=== PATIENT | female | born 1975 | race Hispanic/Latino ===

== ENCOUNTER 2019-10-15 11:38 | Emergency (ER) | payer BC ==
[~2019-10-15] VITALS: Ht 152.4 cm; Wt 73.1 kg
[~2019-10-15 11:38] MED LIST: BIOTIN 800 MCG1 EACH PO; MULTIVITAMINS1 EAC8 PO; VIT B12 PO
--- NOTE | 2019-10-15 12:07 | Emergency Department Note ---
History of Present Illnes History of Present Illness Chief Complaint: Headache History of Present Illness This is a 44 year old female, with no significant past medical history, who presents for evaluation of injuries as a result of a slip and fall that occurred 4 days ago. She states that she was [place], and was walking up a concrete incline to get back into the water, when she slipped and fell, landing on the left side of her face and left chest. She denied loss of consciousness. She's had no nausea, vomiting, dizziness, or focal neurologic's. She does complain of a headache that is keeping her awake at night, and was on relieved a Tylenol 3. She has a bruise on the left side of her cheek and left anterior chest area. She is having some mild left chest pain with inspiration, just beneath the ecchymoses. Patient denies any physical abuse occurred. She denies seek medical care at the time of injury. Historian: Patient Arrival Mode: [employer] Required: No Onset (how long ago): day(s) (4) Location: left side of face and left chest Quality: aching, pain Radiation: Reports non-radiation Severity: moderate Onset quality: sudden Duration (how long): day(s) (4) Timing of current episode: constant Progression: unchanged Chronicity: new Context: Reports trauma/injury (see HPI) Relieving factors: none Exacerbating factors: none Associated symptoms: Reports chest pain (soreness of the area beneath the left chest contusion), Reports headaches; Denies confusion, Denies cough, Denies nausea/vomiting, Denies shortness of breath, Denies weakness Past Medical/Family History Physician Review I have reviewed the patient's past medical and family history. Any updates have been documented here. Past Medical History Recent Fever: No Clinical Suspicion of Infectio: No New/Unexplained Change in Ment: No Past Medical History: None Past Surgical History: None Social History Smoking Cessation: Never Smoker Alcohol Use: None Any Illegal Drug Use: No TB Exposure/Symptoms: No Physically hurt or threatened: No Family History Family history of heart diseas: No Other Any Pre-Existing Lines (PICC,: No Is patient up to date on immun: No Review of Systems Review of Systems Constitutional: Denies fever, Denies malaise, Denies weakness EENTM: Denies eye pain, Denies blurred vision, Denies double vision, Denies nose congestion Cardiovascular: Denies chest pain, Denies palpitations Respiratory: Reports pain on inspiration; Denies cough, Denies hemoptysis, Denies pain with cough, Denies dyspnea, Denies dyspnea on exertion Gastrointestinal: Reports nausea; Denies abdominal pain, Denies diarrhea, Denies vomiting Genitourinary: Reports no symptoms Musculoskeletal: Reports muscle pain (left chest wall pain, beneath ecchymosis;) Integumentary: Reports no symptoms, Reports ecchymosis (beneath the left zygomatic arch) Neurological: Reports headache; Denies numbness, Denies paresthesia, Denies tingling Psychological: Reports anxiety Endocrine: Reports no symptoms Hematological/Lymphatic: Reports no symptoms Review of other systems: All other systems negative Physical Exam Related Data Allergies: Coded Allergies: No Known Allergies (Unverified , 12/10/13) Vital signs reviewed: Yes Physical Exam CONSTITUTIONAL Constitutional: Present well-developed, Present well-nourished; Absent distressed, Absent ill appearing HENT HENT: Present normocephalic, Present atraumatic, Present oropharynx isha r/moist, Present nose normal; Absent rhinorrhea HENT L/R: Present left TM normal, Present right TM normal, Present right canal normal EYES Eyes: Reports PERRL, Reports conjunctivae normal NECK Neck: Present ROM normal; Absent cervical adenopathy PULMONARY Pulmonary: Present effort normal, Present breath sounds normal CARDIOVASCULAR Cardiovascular: Present regular rhythm, Present heart sounds normal, Present capillary refill normal, Present normal rate GASTROINTESTINAL Abdominal: Present soft, Present nontender, Present bowel sounds normal; Absent tender GENITOURINARY Genitourinary: Present exam deferred SKIN Skin: Present bruising (beneath the left zygomatic arch; large, oval shaped b ruise overlying the left chest wall, just lateral to the sternum, no crepitua) MUSCULOSKELETAL Musculoskeletal: Present ROM normal, Present tenderness (left chest wall;); Absent edema, Absent deformity NEUROLOGICAL Neurological: Present alert, Present oriented x 3; Absent no gross motor or sensory deficits, Absent cranial nerve deficit, Absent abnormal gait, Absent weakness PSYCHOLOGICAL Psychological: Present mood/affect normal, Present behavior normal Results Laboratory Laboratory Urine Preg - negative Lab results reviewed: Yes Imaging Imaging results reviewed: Yes Impressions [address], [place] [address] Patient Name: ELPIDIO MADRIGAL MR #: [id number] : 1975 Age/Sex: 44/F Req #: [id number] Adm Physician: Ordered by: HELEN SCHWARTZ MD Report #: [id number] Location: [facility] Room/Bed: Procedure: [id number] HOPD/CXR 2 VIEW - HOPD Exam Date: 10/15/19 Exam Time: 1237 REPORT STATUS: Signed EXAMINATION: CXR 2 VIEW - HOPD INDICATION: Trauma COMPARISON: None FINDINGS: LINES/TUBES:None LUNGS:The lungs are well-inflated. No focal consolidation or pulmonary edema. PLEURA:No pleural effusion or pneumothorax. MEDIASTINUM:The cardiomediastinal silhouette appears normal in size and shape. BONES/SOFT TISSUES:No acute osseous injury. ABDOMEN:No free air under the diaphragm. IMPRESSION: No evidence of acute traumatic injury of the thorax. No focal pneumonia or pulmonary edema. Signed by: Patricia Magallon MD on 10/15/2019 12:45 PM Dictated By: PATRICIA MAGALLON MD [id number] Transcribed By: JOSE DE JESUS on 10/15/19 124 COPY TO: HELEN SCHWARTZ MD~ [facility] [address] [place], [place] [address] Patient Name: ELPIDIO MADRIGAL MR #: [id number] : 1975 Age/Sex: 44/F Req #: [id number] Adm Physician: Ordered by: HELEN SCHWARTZ MD Report #: [id number] Location: [facility] Room/Bed: Procedure: [id number] HOPD/CT BRAIN WO-HOPD Exam Date: 10/15/19 Exam Time: 1237 REPORT STATUS: Signed Exam: Head CT without contrast History: Trauma, fall Comparison studies: Headache Technique: Axial images were obtained from the skull base to the vertex. Coronal and sagittal images reconstructed from the axial data. Dose modulation, iterative reconstruction, and/or weight based adjustment of the mA/kV was utilized to reduce the radiation dose to as low as reasonably achievable. Radiation dose: Total DLP: 969.14 mGy*cm. Estimated effective dose: DLP x 0.015 Intravenous contrast: None Findings: Partially imaged left zygomaticomaxillary soft tissues swelling. Bones: No fractures, blastic or lytic lesions. Brain sulci: Mildly prominent along the superior convexities. Ventricles: Normal in size and configuration. No hydrocephalus. Extra-axial spaces: No masses, no fluid collection. Parenchyma: No abnormal densities. No masses, acute hemorrhage, acute or chronic vascular insults. Sellar/suprasellar region: No abnormalities. Craniocervical junction: Patent foramen magnum. No Chiari one malformation. Included paranasal sinuses: Clear. Middle ear mastoid cavities: Clear. IMPRESSION: 1. No acute intracranial abnormalities. 2. Partially imaged left zygomaticomaxillary soft tissue swelling. No fracture. Signed by: Dr. Kamran Gonsalez M.D. on 10/15/2019 12:46 PM Dictated By: KAMRAN GONSALEZ MD 124 Transcribed By: JOSE DE JESUS on 10/15/19 124 COPY TO: HELEN SCHWARTZ MD~ Assessment & Plan Medical Decision Making MDM - In addition to the medication prescribed to take for the headache, you may take Ibuprofen 200 mg - 3 tabs together every 6 hours, as needed, for pain and muscle ache. - Follow-up with your PCP, if your headaches persist. Headaches, due to even a mild concussion, can be persistent for a number of weeks. - Follow-up with your PCP, to schedule a mammogram, once the bruising on your chest resolves. Assessment & Plan Final Impression: (1) Closed injury of head (2) Contusion of face (3) Chest wall contusion (4) Fall (on)(from) incline, initial encounter Depart Disposition: HOME, SELF-[facility] Meds Active Scripts Butalb/Acetaminophen/Caffeine (Fioricet 50-300-40 mg Capsule) 1 Each Capsule, 1- 2 TAB PO Q6H PRN for headache, #20 TAB 0 Refills Prov:HELEN SCHWARTZ MD 10/15/19 Reported Medications Biotin/Calcium Carbonate (BIOTIN 800 MCG TABLET) 1 Each Tablet, PO DAILY 12/12/13 [Vit B12] No Conflict Check, 1 PO DAILY 12/12/13 Multivitamin (MULTIVITAMINS) 1 Each Tablet, PO DAILY 12/10/13 HELEN SCHWARTZ MD Oct 15, 2019 12:07
--- NOTE | 2019-10-15 12:48 | Diagnostic Imaging Report ---
EXAMINATION: CXR 2 VIEW - HOPD INDICATION: Trauma COMPARISON: None FINDINGS: LINES/TUBES:None LUNGS:The lungs are well-inflated. No focal consolidation or pulmonary edema. PLEURA:No pleural effusion or pneumothorax. MEDIASTINUM:The cardiomediastinal silhouette appears normal in size and shape. BONES/SOFT TISSUES:No acute osseous injury. ABDOMEN:No free air under the diaphragm. IMPRESSION: No evidence of acute traumatic injury of the thorax. No focal pneumonia or pulmonary edema. Signed by: Ehsan Dominguez MD on 10/15/2019 12:45 PM
--- NOTE | 2019-10-15 12:49 | Diagnostic Imaging Report ---
Exam: Head CT without contrast History: Trauma, fall Comparison studies: Headache Technique: Axial images were obtained from the skull base to the vertex. Coronal and sagittal images reconstructed from the axial data. Dose modulation, iterative reconstruction, and/or weight based adjustment of the mA/kV was utilized to reduce the radiation dose to as low as reasonably achievable. Radiation dose: Total DLP: 969.14 mGy*cm. Estimated effective dose: DLP x 0.015 Intravenous contrast: None Findings: Partially imaged left zygomaticomaxillary soft tissues swelling. Bones: No fractures, blastic or lytic lesions. Brain sulci: Mildly prominent along the superior convexities. Ventricles: Normal in size and configuration. No hydrocephalus. Extra-axial spaces: No masses, no fluid collection. Parenchyma: No abnormal densities. No masses, acute hemorrhage, acute or chronic vascular insults. Sellar/suprasellar region: No abnormalities. Craniocervical junction: Patent foramen magnum. No Chiari one malformation. Included paranasal sinuses: Clear. Middle ear mastoid cavities: Clear. IMPRESSION: 1. No acute intracranial abnormalities. 2. Partially imaged left zygomaticomaxillary soft tissue swelling. No fracture. Signed by: Dr. Cy Gonsalez M.D. on 10/15/2019 12:46 PM
[2019-10-15] MEDS ORDERED: FIORICET 50-301 EACH PO (13:21)
== END 2019-10-15 13:50 | disposition home or self-care (01) ==
LOC: FSED 12:00
DX: S20.212A Contusion of left front wall of thorax, initial encounter (principal); S00.83XA Contusion of other part of head, initial encounter
CPT/HCPCS: 70450; 71046; 99283

== ENCOUNTER 2021-03-26 12:06 | Emergency (ER) | payer BC ==
[~2021-03-26] VITALS: Ht 152.4 cm; Wt 76.2 kg
[~2021-03-26 12:06] MED LIST changes: +FIORICET 50-301 EACH PO
[2021-03-26] MEDS ORDERED: SOTROVIMAB 500 MG in SODIUM CHLORIDE 0.9% 100 ML IV ONE (12:30)
== END 2021-03-26 13:33 | disposition home or self-care (01) ==
LOC: ER 12:12
DX: U07.1 COVID-19 (principal)
CPT/HCPCS: 99283; J7050